=== PATIENT | male | born 1980 | race Caucasian/White ===

== ENCOUNTER 2018-03-16 14:13 | Emergency (ER) | payer OTHER, SELFPAY ==
[2018-03-16 14:18] VITALS: BP 153/78; PULSE 56; RESP 20; TEMP 36.3; O2SAT 100
--- NOTE | 2018-03-16 14:24 | DI.CT_ITS ---
SYMPTOMS/DIAGNOSIS: UPPER ABDOMINAL PAIN, NAUSEA, VOMITING CT OF THE ABDOMEN AND PELVIS: There are no prior comparison exams. Images were performed from the lung bases through the ischial tuberosities after IV and without oral contrast. The lung bases are clear. The liver, gallbladder, spleen, pancreas, kidneys and adrenals appear normal. The appendix is normal. No bowel dilatation or inflammatory change is seen. The bladder and prostate are unremarkable. The aorta is normal in diameter. There is a right L 5 pars defect. IMPRESSION: Negative CT of the abdomen and pelvis.
[2018-03-16] MEDS: Normal Saline 1,000 ML 1000 ML IV (14:38)
[2018-03-16] MEDS: Ondansetron 4 MG/2 ML VIAL IVP (14:39)
[2018-03-16 14:40] LABS: Abs Immature Grans 0.02 k/cumm (0.0-0.09); Absolute Basophil Count 0.01 k/cumm (0.0-0.2); Absolute Eosinophil Count 0.03 k/cumm (0.0-0.7); Absolute Lymphocyte Count 1.81 k/cumm (1.2-3.4); Absolute Monocyte Count 0.54 k/cumm (0.11-0.7); Absolute Neutrophil Count 6.93 k/cumm (1.2-6.7); Basophils % 0.1; Eosinophils % 0.3; Immature Grans % 0.2; Lymphocytes % 19.4; Mean Corp. HGB Concentration 35.7 g/dL (32.0-36.0); Mean Corpuscular Hemoglobin 29.1 pg (27.0-33.0); Mean Corpuscular Volume 81.6 fL (80-95); Mean Platelet Volume 9.6 fL (8.0-11.0); Monocytes % 5.8; Neutrophils % 74.2; Platelet Count 186 x1000/uL (130-400); RBC 5.15 m/cumm (4.50-6.00); White Blood Cell Count 9.34 k/cumm (4.4-10.8)
[2018-03-16 14:57] LABS: ALT 27 U/L (12-78); AST 16 U/L (15-37); Albumin 4.3 g/dL (3.4-5.0); Alkaline Phosphatase 55 U/L (46-116); Anion Gap 17.1 mmol/L (3-11); BUN 14 mg/dL (7-18); Bilirubin, Total 0.8 mg/dL (0.2-1.0); CO2 22.9 mmol/L (21.0-32.0); Calcium 9.3 mg/dL (8.5-10.1); Chloride 103 mmol/L (98-107); Glucose 150 mg/dL (70-100); Lipase 88 U/L (73-393); Potassium 3.2 mmol/L (3.5-5.1); Sodium 143 mmol/L (136-145)
[2018-03-16] MEDS: Haloperidol 5 MG/ML VIAL (15:06)
[2018-03-16 15:53] VITALS: BP 153/78; PULSE 56; RESP 20; TEMP 36.3; O2SAT 100
== END 2018-03-16 15:55 ==
PROVIDERS: Emergency Provider Emergency Medicine
DX: R11.2 Nausea with vomiting, unspecified (principal); R10.13 Epigastric pain; F12.188 Cannabis abuse with other cannabis-induced disorder
CPT/HCPCS: 36415; 80053; 83690; 96361; 96374; 96375; 99285; 74177; 85025; 99284; J1630; J2405